=== PATIENT | female | born 1950 | race Two or more races ===

== ENCOUNTER 2018-10-14 07:32 | Outpatient (CLI) | payer OTHER ==
[~2018-10-14] VITALS: Ht 154.9 cm; Wt 58.1 kg
== END 2018-10-14 07:50 | disposition home or self-care (01) ==
LOC: OFIC 805 07:32
DX: C73 Malignant neoplasm of thyroid gland (principal); R22.1 Localized swelling, mass and lump, neck; J31.0 Chronic rhinitis

== ENCOUNTER → 2018-10-14 | Outpatient (CLI) | payer OTHER | END | disposition home or self-care (01) | LOC: TOM 11:18 | DX: E04.2 Nontoxic multinodular goiter (principal) ==

== ENCOUNTER 2018-11-11 09:22 | Outpatient (CLI) | payer OTHER ==
[~2018-11-11] VITALS: Ht 152.4 cm; Wt 57.2 kg
== END 2018-11-11 16:03 | disposition home or self-care (01) ==
LOC: OFIC 805 09:22
DX: C73 Malignant neoplasm of thyroid gland (principal); R22.1 Localized swelling, mass and lump, neck; J31.0 Chronic rhinitis

== ENCOUNTER 2018-12-09 08:40 | Outpatient (CLI) | payer OTHER ==
[~2018-12-09] VITALS: Ht 152.4 cm; Wt 57.2 kg
== END 2018-12-09 10:38 | disposition home or self-care (01) ==
LOC: OFIC 805 08:40
DX: C73 Malignant neoplasm of thyroid gland (principal); R22.1 Localized swelling, mass and lump, neck; J31.0 Chronic rhinitis

== ENCOUNTER 2018-12-30 09:59 | Outpatient (CLI) | payer OTHER ==
[~2018-12-30] VITALS: Ht 152.4 cm; Wt 57.2 kg
== END 2018-12-30 10:15 | disposition home or self-care (01) ==
LOC: OFIC 805 09:59
DX: C73 Malignant neoplasm of thyroid gland (principal); R22.1 Localized swelling, mass and lump, neck; J31.0 Chronic rhinitis

== ENCOUNTER 2019-03-10 10:34 | Outpatient (CLI) | payer OTHER ==
[~2019-03-10] VITALS: Ht 152.4 cm; Wt 56.7 kg
== END 2019-03-10 11:20 | disposition home or self-care (01) ==
LOC: OFIC 805 10:34
DX: C73 Malignant neoplasm of thyroid gland (principal); R22.1 Localized swelling, mass and lump, neck; J31.0 Chronic rhinitis; E89.0 Postprocedural hypothyroidism

== ENCOUNTER → 2019-03-11 | Outpatient (CLI) | payer OTHER | END | disposition home or self-care (01) | LOC: TOM 10:59 | DX: M25.562 Pain in left knee (principal) ==

== ENCOUNTER 2019-12-21 05:57 | Day surgery (SDC) | payer BC, OTHER ==
[~2019-12-21 05:57] MED LIST: CALCITRIOL0.5 MCG PO; LIPITOR20 MG PO; METFORMIN HCL500 M3 PO; PEPCID AC20 MG PO; PROTONIX40 MG PO; SYNTHROID75 MCG PO; VITAMIN D-40010 MCG PO
== END 2019-12-21 11:00 | disposition home or self-care (01) ==
LOC: CIR.AMB 05:57
PROVIDERS: ATTEND Orthopaedic Surgery Hand Surgery
DX: R22.31 Localized swelling, mass and lump, right upper limb (principal); Z01.810 Encounter for preprocedural cardiovascular examination

== ENCOUNTER 2022-06-10 12:51 | Outpatient (CLI) | payer OTHER | END 2022-06-10 12:55 | disposition home or self-care (01) | LOC: NUCLEAR 12:51 | PROVIDERS: ATTEND Obstetrics & Gynecology | DX: M85.80 Other specified disorders of bone density and structure, unspecified site (principal) ==